=== PATIENT | female | born 1975 | race Caucasian/White ===

== ENCOUNTER → 2020-08-16 | Outpatient (CLI) | payer OTHER ==
--- NOTE | 2020-08-16 16:48 | KCIC ---
ADDENDUM #1 Addendum: Soft tissue sarcoma such as a synovial sarcoma is in the differential diagnosis as well. Ho wever, no aggressive features of bone erosion or ligament destruction is seen. Electronically signed by: Luis Keita MD (08/16/2020 4:53 PM) [id number] ORIGINAL REPORT MRI STUDY OF THE LEFT KNEE WITHOUT CONTRAST CLINICAL INDICATIONS: Left knee pain. Progressing left knee pain worse with activity. Crepitus and de creased strength. TECHNIQUE: T1 and T2 and proton density weighted MRI sequences of the left knee was performed. Images were obtained in all 3 planes. FINDINGS: The anterior and posterior cruciate ligaments are intact. The quadriceps and patellar tendo ns are intact. The medial or lateral meniscus are intact. No focal osteochondral abnormality of the m edial or lateral tibiofemoral joint compartments is seen. The medial collateral ligament is intact an d no meniscocapsular separation is seen. The lateral collateral ligament complex and iliotibial band and popliteus tendon are intact. No posterior lateral corner injury is seen. No bone contusion or fra cture or marrow infiltrative process is seen. The patella is normally aligned. There is moderate rahul dromalacia patella of the medial patellar facet and apex with a linear defect at the apex. No subchon dral stress reaction bone marrow edema is seen. There is thinning of the trochlear articular cartilag e without subchondral stress reaction bone marrow edema. The medial and lateral retinacular ligaments are intact. Just inferior to the lateral inferior pole of the patella is a mass of Hoffa's fat pad p osterior to the upper aspect of the patellar tendon. This measures 26 mm in vertical dimension and 25 mm in transverse dimension and 17 mm in AP dimension. This demonstrates intermediate signal intensit y similar to muscle on T1-weighted images and brighter than muscle on T2-weighted images No Madrigal's c yst is seen. No knee joint effusion is seen. No loose body is evident. No muscle edema is seen. IMPRESSION: No ligament or tendon or meniscal tear. Moderate chondromalacia patellae. There is thinning of the trochlear cartilage without subchondral st ress reaction bone marrow edema. Normal position of the patella. Inferior to the lateral inferior pole of the patella is a soft tissue mass of Hoffa's fat pad posteri or to the upper aspect of the patellar tendon with measurements discussed above. This may represent f ocal nodular synovitis or complex ganglion cyst or unusual bursitis. Pigmented villonodular synovitis typically demonstrates blood products and adjacent bone erosion which are not seen here. This remain s in the differential diagnosis however. Electronically signed by: Luis Keita MD (08/16/2020 4:46 PM) [id number]
--- NOTE | 2020-08-16 17:07 | KCIC ---
MRI STUDY OF THE LEFT HIP WITHOUT CONTRAST CLINICAL INDICATIONS: Left hip pain for 2-3 years after starting a new workout. Pain has never resolv ed. TECHNIQUE: T1 and T2-weighted MRI sequences of the left hip was performed. MRI sequences were obtaine d in all 3 planes. An additional STIR coronal sequence of both hips was performed for comparison. FINDINGS: No marrow infiltrative process or fracture or bone contusion is evident. No avascular necro sis of the left femoral head is seen. No left hip joint effusion or loose body is seen. There is mild degenerative spurring of the left femoral head. There is no significant thinning of articular cartil age. The acetabular labrum is intact and no paralabral ganglion cyst is seen. The conjoined hamstring tendon is intact and no ischial tuberosity bursitis is seen. The iliopsoas tendon is intact and no i liopsoas bursitis is seen. There is mild tendinosis of the gluteus fam tendon at the level of the greater trochanter. No greater trochanteric bursitis is seen. There is tendinosis of the gluteus min imus tendon at the attachment to the anterior aspect of the greater trochanter. No other muscle edema is seen. No soft tissue mass or hematoma is evident. STIR coronal sequence of the opposite right femoral head demonstrates no avascular necrosis of the op posite right femoral head. No bone marrow edema of the upper sacrum is seen on either side. 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 This more severely involves the gluteus minimus tendon attachment with T2 edema present here . No rupture of this tendon is evident. This could be secondary to overuse. Electronically signed by: Luis Keita MD (08/16/2020 5:05 PM) [id number]
== END ==
LOC: KCIC MRI 09:39
PROVIDERS: ATTEND Nurse Practitioner Women's Health
DX: M22.42 Chondromalacia patellae, left knee (principal); M76.02 Gluteal tendinitis, left hip; M12.262 Villonodular synovitis (pigmented), left knee
CPT/HCPCS: 73721

== ENCOUNTER → 2021-02-14 | Outpatient (CLI) | payer OTHER ==
--- NOTE | 2021-02-14 16:17 | KCIC ---
EXAMINATION: MRI LEFT LOWER EXTREMITY JOINT WITHOUT INDICATIONS: Left knee tumor, PVNS. TECHNIQUE: Multiplanar multisequence MRI of the left knee was obtained without contrast. COMPARISON: MRI left knee 08/16/2020 FINDINGS: MENISCI: The medial and lateral menisci are intact. LIGAMENTS: The anterior and posterior cruciate ligaments are intact. The medial collateral ligament and lateral collateral ligament complex are intact. EXTENSOR MECHANISM: The quadriceps and patellar tendons are intact. Fat pads are normal. Retinacula are intact. BONES AND CARTILAGE: No acute fracture. Marrow signal is normal. Unchanged patchy superficial and de ep partial-thickness cartilage loss along the patella. Mild heterogeneity of the inner medial tibial plateau cartilage without focal defect. OTHER: There has been interval resection of the T2 hyperintense mass in the superior lateral aspect of Hoffa's fat pad. No evidence of recurrent mass. No joint effusion. IMPRESSION: 1. Interval resection of soft tissue mass in the superior lateral aspect of Hoffa's fat pad. No recur rent mass. 2. Unchanged patellofemoral cartilage loss. Electronically signed by: Leahta Boyd MD (02/14/2021 4:15 PM) [id number]
== END ==
LOC: KCIC MRI 09:23
PROVIDERS: ATTEND Nurse Practitioner Women's Health
DX: M12.262 Villonodular synovitis (pigmented), left knee (principal); E65 Localized adiposity
CPT/HCPCS: 73721